=== PATIENT | female | born 1940 | race Caucasian/White ===

== ENCOUNTER 2018-02-11 22:46 | Emergency (ER) | payer BC ==
[~2018-02-11] VITALS: Ht 167.6 cm; Wt 70.2 kg
[2018-02-11 22:50] VITALS: TEMP 36.5; Ht 167.6 cm; Wt 70.2 kg
[2018-02-12 00:59] VITALS: BP 143/79; PULSE 81; O2SAT 98
--- NOTE | 2018-02-12 01:03 | EMERGENCY ROOM VISIT NOTE ---
History Report prepared by Xuan: Maritza Marcum Under the Supervision of: Dr. Irene Escoto D.O. First contact with patient: 23:01 Chief Complaint: EYE ASSESSMENT Stated Complaint: BLURRED VISION, LEFT EYE, LEFT SIDED HEADACHE History of Present Illness The patient is a 77 year old female who presents to the Emergency Room with complaints of an episode of blurred vision starting one day ago. The patient states that she noticed last night that her vision was blurry in the center of her left eye when she tried to read. She reports that if she turned her head a certain way to look out to read, it was no longer blurry. She states that she thought something was just in her eye, but it has not gone away. She reports that it has been constant all day, but has not gotten worse until coming from [place]. The patient complains of a left sided headache. She reports that she took Tylenol for it and she currently rates her pain as a 2/10 in severity. The patient states that she went to [facility] since it was the closest place to the relatives she is visiting. She states that she is from [place]. The patient notes a history of atrial fibrillation and states that she takes Xarelto for it. She states that she has been on it for several years and has never had any issues with the medication. 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 She states that she had a vitreous detachment and the retina wrinkled. The patient denies nausea, vomiting, cough, cold, allergies, recent new medications, leg cramping, leg swelling, recent tripping, recently dropping things from her hands, and pain in her eye. Source of History: patient Onset: one day ago Position: eye (left) Quality: other (blurry) Timing: other (episode) Associated Symptoms: + headache, No cough, No nausea, No vomiting Note: The patient denies a cold, allergies, recent new medications, leg cramping, leg swelling, recent tripping, recently dropping things from her hands, and pain in her eye. Review of Systems See HPI for pertinent positives & negatives. A total of 10 systems reviewed and were otherwise negative. Past Medical & Surgical Medical Problems: (1) Atrial fibrillation (2) Heart disease (3) History of rectal abscess (4) Mitral regurgitation Family History Cancer Diabetes mellitus Heart disease Social History Smoking Status: Never Smoker Alcohol Use: occasionally Marital Status: Housing Status: lives with significant other Occupation Status: retired Physical Exam Vital Signs Date Time Temp Pulse Resp B/P (MAP) Pulse Ox O2 Delivery O2 Flow Rate FiO2 02/12/18 00:59 81 18 143/79 98 Room Air 02/11/18 22:50 36.5 77 18 144/94 98 Room Air Physical Exam HEENT: Head - normocephalic and atraumatic Pupils are equal, round, and reactive to light. Extraocular eye muscles are intact, and sclera are anicteric. Nose - moist nasal mucosa without discharge. Mouth - moist buccal mucosa. Oropharynx is nonerythematous and there is no tonsillar exudate or edema noted. Neck: Supple; no JVD, nuchal rigidity, cervical lymphadenopathy, no thyromegaly. Heart: Regular rate and rhythm. There is a normal S1 and S2 with no murmurs, clicks, or gallops appreciated. Lungs: Clear to auscultation bilaterally with no wheezes, rales, or rhonchi. Abdomen: Soft, completely nontender, nondistended, with good bowel sounds. There are no palpable pulsatile masses or hepatosplenomegaly. There is no guarding, rigidity, or rebound noted. Extremities: No evidence of cyanosis, clubbing, or edema. There are easily palpable peripheral pulses. Skin: warm and dry with good turgor and no rashes. Medical Decision & Procedures ER Provider Diagnostic Interpretation: Radiology results as stated below per my review and the radiologist's interpretation: CT HEAD: No ICH, mass effect or edema. No evidence of acute cortical stroke. Periventricular small vessel ischemic change. No midline shift. Diffuse parenchymal atrophy. Visualized sinuses and mastoid air cells are clear. Radiologist: Prince Luna MD Study ready at 23:49 and initial results transmitted at 00:48. Laboratory Results 02/12/18 01:00 Test 02/12/18 01:00 Red Blood Count 4.39 M/uL (4.2-5.4) Mean Corpuscular Volume 90.7 fL (80-100) Mean Corpuscular Hemoglobin 30.5 pg (25-34) Mean Corpuscular Hemoglobin Concent 33.7 g/dl (32-36) RDW Standard Deviation 42.5 fL (36.4-46.3) RDW Coefficient of Variation 12.8 % (11.5-14.5) Mean Platelet Volume 9.8 fL (7.4-10.4) Erythrocyte Sedimentation Rate 6 mm/hr (0-21) C-Reactive Protein < 0.29 mg/dl (0-0.29) Laboratory results per my review. Procedure Slit Lamp Examination Indication: Visual field cut The left eye was examined. Slit lamp examination was performed in the standard fashion. Cornea appeared clear. Anterior chamber quiet. Scleral injection was not present. No discharge present. Fluorescein examination performed and revealed no obvious corneal abrasion or foreign body. The patient tolerated the procedure well without complication. ED Course 2305: The patient was evaluated in room A10. A complete history and physical exam was performed. At this time, I checked the patient's intraocular pressure. The average was 16 in both eyes. Right after being examined, the patient went for visual acuity. Her left eye was 20/30. Her right eye was . 0032: I reevaluated the patient and she is doing well. I performed a funduscopic exam at this time and it was normal. 0042: I discussed the patient's case with Dr. Pelaez - Ophthalmology. He states that he will see her in the office later today and to check for temporal arteritis. 0048: I reevaluated the patient and updated her on what Ophthalmology said. The patient has no palpable discomfort over the left temporal artery. The sed rate, C-reactive protein, and platelet count were all normal 0105: Upon reevaluation, the patient was doing well. I discussed findings and results with her of the CT. She asked if they could be called on the lab results and she could be discharged. She verbalized agreement of the treatment plan. The patient was discharged home. Medical Decision The patient is a 77 year old female who presents to the Emergency Room with complaints of an episode of blurred vision starting one day ago. Differential diagnoses include vitreous hemorrhage, retinal artery occlusion, retinal vein occlusion, retinal detachment, giant cell arteritis, acute CVA, glaucoma, corneal abrasion. LABS: White count 4.2 Stable H&H Platelet count 175 Sed Rate of 6 C-Reactive Protein of less than 0.29 This is a 77-year-old female patient who presents to the emergency department with blurred vision in the center of her visual field. Her symptoms started greater than 24 hours ago. She had been seen at [facility] and was directed here for further evaluation and referral to ophthalmology. On physical exam, funduscopic exam, and slit-lamp exam, the patient had no obvious abnormalities. I discussed the case with ophthalmology and they will see her later in the office today. We will do laboratory studies to test for temporal arteritis. These were unremarkable. The patient was told to call the office in the morning to make an appointment. If her vision worsen, she should return here to the ER. Medication Reconcilliation Current Medication List: was personally reviewed by me Blood Pressure Screening Patient's blood pressure: Elevated blood pressure Blood pressure disposition: Elevated BP felt to be situational Consults Time Called: 35 Consulting Physician: Dr. Pelaez - Ophthalmology Returned Call: 41 I discussed the patient's case with Dr. Pelaez - Ophthalmology. He states that he will see her in the office tomorrow and to check for temporal adenitis. Impression Primary Impression: Visual field cut Scribe Attestation The scribe's documentation has been prepared under my direction and personally reviewed by me in its entirety. I confirm that the note above accurately reflects all work, treatment, procedures, and medical decision making performed by me. Departure Information Dispostion Home / Self-Care Referrals No Doctor, Assigned (PCP) Forms HOME CARE DOCUMENTATION FORM, IMPORTANT VISIT INFORMATION, WORK / SCHOOL INSTRUCTIONS Patient Instructions My [facility] Additional Instructions Return to the ER if vision worsens. Follow up with Dr. Pelaez today I will call you if the labs are abnormal
[2018-02-12 01:06] LABS: HEMATOCRIT 39.8 % (37-47); HEMOGLOBIN 13.4 g/dL (12.0-16.0); MEAN CELL VOLUME 90.7 fL (80-100); MEAN CORPUSCULAR HEMOGLOBIN 30.5 pg (25-34); MEAN CORPUSCULAR HGB CONC 33.7 g/dl (32-36); MEAN PLATELET VOLUME 9.8 fL (7.4-10.4); PLATELET COUNT 175 K/uL (130-400); RED CELL DISTRIBUTION WIDTH CV 12.8 % (11.5-14.5); RED CELL DISTRIBUTION WIDTH SD 42.5 fL (36.4-46.3); WHITE BLOOD COUNT 4.27 K/uL (4.8-10.8)
--- NOTE | 2018-02-12 06:48 | DIAGNOSTIC IMAGING REPORT ---
HEAD WITHOUT CONTRAST (CT) CLINICAL HISTORY: 77 years-old Female with eval for bleed - left eye visual field cut and headache. Acute head injury status post trauma TECHNIQUE: Multiple axial CT images of the head were obtained without contrast. A dose lowering technique was utilized adhering to the principles of ALARA. CT DOSE: 537.48 mGy.cm COMPARISON: None. FINDINGS: No acute intracranial hemorrhage, midline shift, intracranial mass, hydrocephalus, territorial ischemia or abnormal extra-axial collection. Mild generalized brain atrophy with ill-defined areas of low-attenuation within the subcortical white matter suggesting mild chronic microvascular ischemic changes. The calvarium is intact. The paranasal sinuses, mastoid air cells, and middle ear cavities are clear. IMPRESSION: No acute intracranial abnormality. The above report was generated using voice recognition software. It may contain grammatical, syntax or spelling errors. Electronically signed by: Mario Yo M.D. 02/12/2018 6:46 AM Dictated Date/Time: 02/12/2018 6:45 AM
== END 2018-02-12 01:16 | disposition home or self-care (01) ==
LOC: C.EDB 22:48 → C.EDA 02-12 01:16
DX: H53.40 Unspecified visual field defects (principal); I48.91 Unspecified atrial fibrillation; Z79.01 Long term (current) use of anticoagulants